=== PATIENT | male | born 2000 | race African-American/Black ===

== ENCOUNTER 2024-01-09 12:52 | Emergency (ER) | payer OTHER ==
[~2024-01-09] VITALS: Ht 177.8 cm; Wt 68.0 kg
[2024-01-09 12:57] VITALS: BP 120/63; PULSE 70; RESP 16; TEMP 98.6; O2SAT 99
[2024-01-09] MEDS: ONDANSETRON HCL 4MG/2ML INJ IM ONE (16:09)
[2024-01-09] MEDS: METOCLOPRAMIDE HCL 10MG/2ML VIAL IV ONE (16:15)
== END 2024-01-09 17:00 | disposition home or self-care (01) ==
LOC: ER 13:27
DX: F11.23 Opioid dependence with withdrawal (principal); R11.2 Nausea with vomiting, unspecified
CPT/HCPCS: 99283; 96374; 82962; J2765; J2405

== ENCOUNTER 2025-03-24 16:13 | Emergency (ER) | payer OTHER ==
[~2025-03-24] VITALS: Ht 182.9 cm; Wt 63.0 kg
[2025-03-24 16:21] VITALS: O2SAT 99
[2025-03-24] MEDS: LIDOCAINE 5% PATCH TOP SCH (17:17)
[2025-03-24] MEDS: KETOROLAC 15MG/ML VIAL IM ONE (17:17)
[2025-03-24] MEDS ORDERED: IBUP-2028 MT (18:03)
[2025-03-24 18:21] VITALS: BP 120/73; PULSE 74; RESP 16; TEMP 36.7; O2SAT 99
== END 2025-03-24 18:21 | disposition home or self-care (01) ==
LOC: ER 16:13
DX: S39.012A Strain of muscle, fascia and tendon of lower back, initial encounter (principal); Z79.899 Other long term (current) drug therapy; X58.XXXA Exposure to other specified factors, initial encounter; Y93.89 Activity, other specified; Y92.89 Other specified places as the place of occurrence of the external cause; Y99.8 Other external cause status
CPT/HCPCS: 99283; 72100; 96372; J1885

== ENCOUNTER 2025-08-05 11:11 | Emergency (ER) | payer OTHER ==
[~2025-08-05] VITALS: Ht 182.9 cm; Wt 70.0 kg
[~2025-08-05 11:11] MED LIST: IBUP-2028 MT
[2025-08-05 11:12] VITALS: BP 135/90; PULSE 69; RESP 16; TEMP 98.5; O2SAT 98
== END 2025-08-05 12:42 | disposition left against medical advice (07) ==
LOC: ER 11:11
DX: R53.1 Weakness (principal); J11.1 Influenza due to unidentified influenza virus with other respiratory manifestations
CPT/HCPCS: 99281